=== PATIENT | female | born 1970 | race African-American/Black ===

== ENCOUNTER 2025-10-20 09:25 | Outpatient (CLI) | payer OTHER | END 2025-10-20 09:26 | disposition home or self-care (01) | LOC: CSHULT 09:25 | PROVIDERS: ATTEND Internal Medicine | DX: I12.9 Hypertensive chronic kidney disease with stage 1 through stage 4 chronic kidney disease, or unspecified chronic kidney disease (principal); N18.32 Chronic kidney disease, stage 3b | CPT/HCPCS: 76770 ==